=== PATIENT | female | born 1960 | race Caucasian/White ===

== ENCOUNTER 2025-01-15 17:58 | Emergency (ER) | payer BC, SELFPAY ==
[2025-01-15 18:01] VITALS: BP 180/79; PULSE 104; RESP 20; TEMP 36.9; O2SAT 95
--- NOTE | 2025-01-15 19:01 | W.ED.GENAD ---
Discharge Plan Disposition Patient Disposition: Home Condition: Stable Discharge Details Clinical Impression: Contusion of right foot Primary Care Provider: None,None ED Provider: Hugo Cardoza Home Meds and New Rx's Prescriptions: No Action multivitamin Tablet 1 tab PO ONCE Discharge Instructions Instructions: Minor Contusion ED Additional Instructions: You were seen in the emergency department for the contusion of your right lateral foot, there is no fracture seen on x-ray but you do have suspicious bruising, please rest, ice, compress and elevate the area often, partially weight-bear as tolerated, take regular doses of Tylenol and ibuprofen, if you have persistent pain lasting longer than 7 to 10 days please seek routine x-ray by your primary care provider and possible referral to orthopedics, please return for any signs of infection or neurovascular compromise to the right foot. Discharge Data Discharge Date/Time-TO BE ENTERED AT DEPARTURE: 01/15/25 20:35 HPI General Date/Time Provider Initiated Documentation: 01/15/25 18:14. HPI Narrative: 64 year-old female presents to ED today by POV/ambulating with a chief complaint of twisting injury to her R ankle and R lateral foot, with onset earlier today- stepped off her porch into a hole. Quality described as bruising to lateral foot anterior to distal fibula, no radiation to severe pain, can tolerate weight-bearing, denies numbness/tingling, no proximal leg pain. Severity is described as mild. Palliating factors include nothing specific. Provoking factors include nothing specific. Patient not anticoagulated. Related Data Home Medications ?Medication ?Instructions ?Recorded ?Confirmed multivitamin 1 tab PO ONCE 01/15/25 01/15/25 Allergies Allergy/AdvReac Type Severity Reaction Status Date / Time No Known Allergies Allergy Verified 01/15/25 18:07 General Stated Complaint: Orthopedic MARIELA: 4 Review of Systems All systems reviewed & are unremarkable except as noted in HPI and below Exam Narrative Exam Narrative: GENERAL APPEARANCE: Well-nourished, non-toxic, awake and alert, atraumatic, no acute distress. SKIN: Warm, pink, dry, intact, without rashes/lesions/ulcerations. HEAD: Normocephalic, atraumatic, normal hair distribution for gender/age. EYES: Normal conjunctiva, no exudates on lids/lashes. ENT: Nares patent, no circumoral cyanosis, no facial swelling NECK: Supple, trachea midline, painless cervical ROM. LUNGS/CHEST: Non-labored respirations, normal A/P diameter, symmetrical expansion, no chest wall deformity HEART (CV/PV): Regular rate, no peripheral edema, no JVD. ABDOMEN: Soft, non-distended, no guarding. MSK: Normal ROM, no deformity to bilateral UEs or LEs, moving all extremities without weakness, no cyanosis, spine midline without tenderness, normal curvature, minor contusion to lateral foot around the base of the fifth metatarsal, no malleoli or tenderness, able to bear weight, right dorsalis pedis pulse 2+, range of motion intact in the foot and ankle NEURO: Mental Status AAOx4 - alert to person, place, time, events No facial droop, no forehead involvement. Motor: No focal weakness - strength 5/5 in bilateral UEs and LEs, proximal and distal, symmetric. Sensory: sensation intact to light touch globally. Gait normal: patient ambulated without ataxia into ED room. PSYCH: euthymic, cooperative, pleasant, appropriate speech Course Vital Signs Vital signs: Vital Signs Temperature 36.9 C 01/15/25 18:01 Pulse 104 H 01/15/25 18:01 Respiratory Rate 20 01/15/25 18:01 Blood Pressure 180/79 H 01/15/25 18:01 Pulse Oximetry 95 01/15/25 18:01 Temperature 36.9 C 01/15/25 18:01 Temperature Source Oral 01/15/25 18:01 Pulse 104 H 01/15/25 18:01 Respiratory Rate 20 01/15/25 18:01 Blood Pressure 180/79 H 01/15/25 18:01 Blood Pressure Position Sitting 01/15/25 18:01 Pulse Oximetry 95 01/15/25 18:01 Oxygen Delivery Method Room Air 01/15/25 18:01 Oxygen Flow Rate 0 01/15/25 18:01 Pain Level 5 01/15/25 18:12 Medical Decision Making This dictation utilizes [id number] dictation software and may contain unedited grammatical errors. 64 year-old female presents to ED today by POV/ambulating with a chief complaint of twisting injury to her R ankle and R lateral foot, with onset earlier today- stepped off her porch into a hole. Quality described as bruising to lateral foot anterior to distal fibula, no radiation to severe pain, can tolerate weight-bearing, denies numbness/tingling, no proximal leg pain. Severity is described as mild. Palliating factors include nothing specific. Provoking factors include nothing specific. Patients' medical history: Negative, otherwise healthy. Family and social history: Noncontributory. Pertinent exam findings / vital signs include minor contusion to lateral foot around the base of the fifth metatarsal, no malleoli or tenderness, able to bear weight, right dorsalis pedis pulse 2+, range of motion intact in the foot and ankle. Differential / pathologies of concern include fracture, contusion, sprain or strain. Diagnostic studies of: - XR R ankle and foot- vRAD read read shows no acute fracture. Interventions of: -Offered cast shoe or boot or crutches, patient declined. - Did field a call on overread questioning two lucencies from calcaneus from Dr. Gauthier in overread at 2144- feel this was not anatomic to her contusion, and she did roll her ankle perhaps this is a small ligamentous avulsion, will call patient tomorrow. Spoke to her at 1855 on 01/16- pain is not around calcaneus, feels fine- recommend repeat XR in 7-10 days if persistent. ED Course/Assessment/Plan: 64-year-old female presents with a contusion to the lateral midfoot after rolling her ankle, she possibly has a bad sprain, I recommended her to receive repeat x-ray should her pain persist, she declined crutches or cast shoe, recommend RICE therapy and follow-up with orthopedics for persistent pain lasting longer than 2 weeks. Findings not consistent with fracture, NV compromise. Disposition of Contusion of Right Foot. Patient verbalized understanding of the plan and return to ED criteria and engaged in shared decision making. Medical Records Medical records reviewed: Yes I reviewed the patient's medical records. Imaging Data Radiologic Study: Attestation: I personally reviewed and interpreted this imaging study as follows: Imaging: X-Ray Radiologist's impression: Exam: XR Right Foot Exam date and time: 01/15/2025 7:15 PM Age: 64 years old Clinical indication: Other: R ankle/lateral foot pain TECHNIQUE: Imaging protocol: Radiologic exam of the right foot. Views: 3 or more views. COMPARISON: CR XR ANKLE RT COMPLETE 01/15/2025 7:14 PM FINDINGS: Bones/joints: No acute fracture. Mild osteoarthritic changes identified involving the interphalangeal joints. Soft tissues: Normal. IMPRESSION: 1. No acute fracture. 2. Mild osteoarthritis. Dictated and Authenticated by: Shree Gordon MD. EXAM: XR FOOT RT COMPLETE and XR ankle RT complete CLINICAL HISTORY: R ankle/lateral foot pain. TECHNIQUE: 2D digital imaging was performed of the right ankle and foot. Six images were obtained. AP, oblique and lateral views were obtained. COMPARISON: There are no priors for comparison. FINDINGS: BONES: There are 2 curvilinear calcifications seen at the lateral aspect of the foot on the AP view of the ankle. The location suggest an origin from the lateral aspect of the calcaneus. No bony destructive lesion is seen. JOINTS: No dislocation present. The joint spaces are well maintained. The ankle mortise is unremarkable. SOFT TISSUE: Normal. IMPRESSION: 1. Two curvilinear calcifications at the lateral aspect of the foot on the AP view of the ankle. Their location suggests in origin of the calcaneus. Please correlate with patient's site of pain. If there is continued clinical concern, a CT scan of the hindfoot should be obtained. 2. Findings were discussed with Hugo Cardoza at 9:49 p.m. on 01/15/2025. 3. The preliminary [facility] report was reviewed. Radiologic Study #2: Attestation: I personally reviewed and interpreted this imaging study as follows: Imaging: X-Ray Radiologist's impression: Exam: XR Right Ankle Exam date and time: 01/15/2025 7:14 PM Age: 64 years old Clinical indication: Other: R ankle/lateral foot pain TECHNIQUE: Imaging protocol: Radiologic exam of the right ankle. Views: 3 or more views. COMPARISON: No relevant prior studies available. FINDINGS: Bones/joints: Normal. Soft tissues: Normal. IMPRESSION: No acute findings. Dictated and Authenticated by: Shree Gordon MD. [facility] All Active Problems (Updated 01/15/25 @ 20:27 by BHARAT Moreno) Contusion of right foot (Acute) Social History Smoking/Tobacco Use Status: Never Smoking risk assessment performed?: Yes Alcohol Intake: never Drug use: Never Substance use type: does not use Do you feel safe at home: Yes Do you feel safe in your relationship?: Yes
--- NOTE | 2025-01-15 19:22 | DI.RAD_ITS ---
Exam(s) XR ANKLE RT COMPLETE XR FOOT RT COMPLETE EXAM: XR FOOT RT COMPLETE and XR ankle RT complete CLINICAL HISTORY: R ankle/lateral foot pain. TECHNIQUE: 2D digital imaging was performed of the right ankle and foot. Six images were obtained. AP, oblique and lateral views were obtained. COMPARISON: There are no priors for comparison. FINDINGS: BONES: There are 2 curvilinear calcifications seen at the lateral aspect of the foot on the AP view of the ankle. The location suggest an origin from the lateral aspect of the calcaneus. No bony destructive lesion is seen. JOINTS: No dislocation present. The joint spaces are well maintained. The ankle mortise is unremarkable. SOFT TISSUE: Normal. IMPRESSION: 1. Two curvilinear calcifications at the lateral aspect of the foot on the AP view of the ankle. Their location suggests in origin of the calcaneus. Please correlate with patient's site of pain. If there is continued clinical concern, a CT scan of the hindfoot should be obtained. 2. Findings were discussed with Hugo Cardoza at 9:49 p.m. on 01/15/2025. 3. The preliminary [facility] report was reviewed. DATA REPOSITORY: RADIATION DOSE DELIVERED:
--- NOTE | 2025-01-15 20:20 | DI.[facility]_ITS ---
PROCEDURE INFORMATION: Exam: XR Right Foot Exam date and time: 01/15/2025 7:15 PM Age: 64 years old Clinical indication: Other: R ankle/lateral foot pain TECHNIQUE: Imaging protocol: Radiologic exam of the right foot. Views: 3 or more views. COMPARISON: CR XR ANKLE RT COMPLETE 01/15/2025 7:14 PM FINDINGS: Bones/joints: No acute fracture. Mild osteoarthritic changes identified involving the interphalangeal joints. Soft tissues: Normal. IMPRESSION: 1. No acute fracture. 2. Mild osteoarthritis. Dictated and Authenticated by: Shree Gordon MD. Orderin Sony Arias MD
--- NOTE | 2025-01-15 20:20 | DI.[facility]_ITS ---
PROCEDURE INFORMATION: Exam: XR Right Ankle Exam date and time: 01/15/2025 7:14 PM Age: 64 years old Clinical indication: Other: R ankle/lateral foot pain TECHNIQUE: Imaging protocol: Radiologic exam of the right ankle. Views: 3 or more views. COMPARISON: No relevant prior studies available. FINDINGS: Bones/joints: Normal. Soft tissues: Normal. IMPRESSION: No acute findings. Dictated and Authenticated by: Shree Gordon MD. Orderin Sony Arias MD
== END 2025-01-15 20:35 | disposition home or self-care (01) ==
PROVIDERS: Emergency Provider Physician Assistant
DX: S90.31XA Contusion of right foot, initial encounter (principal); X50.1XXA Overexertion from prolonged static or awkward postures, initial encounter; Y93.01 Activity, walking, marching and hiking; Y92.018 Other place in single-family (private) house as the place of occurrence of the external cause
CPT/HCPCS: 99283; 73610; 73630